=== PATIENT | male | born 1955 | race Caucasian/White ===

== ENCOUNTER → 2018-07-15 09:04 | Outpatient (CLI) | payer OTHER, SELFPAY ==
--- NOTE | 2018-07-15 | DI.MRI.S_ITS ---
PROCEDURE: MR CERVICAL SPINE WO CON INDICATIONS: PAIN IN LEFT SHOULDER TECHNIQUE: Noncontrast sagittal T1 spin echo and T2 fast spin echo, sagittal STIR, foraminal oblique sagittal T2 fast spin echo, and axial gradient echo or T2 fast spin echo through the cervical spine. COMPARISON: [facility], , C-SPINE WITHOUT CONTRAST, 09/20/2017, 8:29. FINDINGS: Image quality: Excellent. Alignment and Curvature: There is mild straightening of normal cervical lordosis. Grade 1 retrolisthesis of C3 on C4 is again seen, not significantly changed from previous study. Bone Marrow: Marrow demonstrates normal overall signal. Vertebral body heights are well-preserved. No acute compression fracture. Spinal Cord: Visualized spinal cord has normal size and signal. No cerebellar tonsillar herniation. Paraspinous Soft Tissues: No paravertebral masses. Prevertebral soft tissues are normal in thickness. 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 Similar finding is also noted on the left side at C7-T1 level. C2-C3: Bilateral uncinate hypertrophic changes are again seen more prominent on the left side with mild to moderate left-sided neuroforaminal narrowing unchanged from previous study. No significant canal stenosis. C3-C4: Diffuse disc bulge and bilateral uncinate hypertrophic changes are seen with superimposed central disc herniation causing moderate central canal stenosis and bilateral neuroforaminal narrowing unchanged or slightly progressed since previous study. C4-C5: Broad-based disc bulge and bilateral uncinate hypertrophic changes are again seen causing moderate central canal stenosis and left worse than right bilateral neuroforaminal narrowing, unchanged from previous study. C5-C6: Broad-based disc approach and bilateral uncinate hypertrophic changes are again seen with mild central canal stenosis and bilateral neural foramina narrowing unchanged from prior study. C6-C7: Broad-based disc bulge and bilateral uncinate hypertrophic changes are seen with mild central canal stenosis and mild bilateral neuroforaminal narrowing, not significantly changed from previous study. C7-T1: Normal appearance. IMPRESSION: 1. No significant interval changes from previous study. Multilevel degenerative disc bulge and bilateral facet hypertrophic changes causing mild to moderate central canal stenosis and bilateral neuroforaminal narrowing as described above, not significantly from previous study. 2. No marrow edema. No abnormal cervical spinal cord signal. Stable minimal retrolisthesis of C3 on C4. Dictated by: Laci Zuñiga M.D. on 07/15/2018 at 11:52 Approved by: Laci Zuñiga M.D. on 07/15/2018 at 11:58
--- NOTE | 2018-07-15 | DI.MRI.S_ITS ---
PROCEDURE: MR SHOULDER LT W CON INDICATIONS: PAIN IN LEFT SHOULDER TECHNIQUE: After the administration of 12 mL of dilute intra-articular Gadolinium contrast, oblique coronal T1 and T2 spin echo with fat saturation, oblique sagittal T1 spin echo with and without fat saturation, oblique sagittal T2 fast spin echo with fat saturation, axial T1 spin echo with fat saturation through the shoulder. COMPARISON: [facility], RF, FL SHOULDER INJECTION MR/CT LT, 07/15/2018, 9:34. [facility], MR, SHOULDER WITH CONTRAST, 09/26/2016, 9:52. FINDINGS: Image quality: Excellent. Rotator cuff: Tendinosis and moderately articular surface partial-thickness tear involving distal supraspinatus at its insertion on greater tuberosity of humeral head is seen extending to the musculotendinous junction. Tendinosis and moderate grade articular surface partial-thickness tear involving distal infraspinatus extending to musculotendinous junction is also noted. There is distal subscapularis tendinosis. No gross full-thickness rotator cuff tendon rupture. Mild supraspinatus muscle atrophy is seen on sagittal images. Bones and bursae: No bone marrow contusions or fractures. Mild to moderate osteoarthritic changes in the acromioclavicular joint is seen. The acromion demonstrates conventional anatomy, without an os acromiale. Capsule and soft tissues: There is subtle signal abnormality and contrast extension in superior labrum at 12:00 position, suggestive of focal labral tear. The long head of the biceps tendon demonstrates normal location and morphology. The rotator interval appears normal, without fibrosis. The coracohumeral ligament is of normal thickness. No intra-articular bodies. IMPRESSION: 1. Tendinosis and moderately articular surface partial-thickness tear involving distal supraspinatus and infraspinatus extending to musculotendinous junctions. Distal subscapularis tendinosis. No full-thickness rotator cuff tendon tear. 2. Suggestion of focal superior labral tear at 12:00 position. 3. Mild to moderate acromioclavicular joint osteophyte is. Dictated by: Laci Zuñiga M.D. on 07/15/2018 at 11:30 Approved by: Laci Zuñiga M.D. on 07/15/2018 at 11:52
--- NOTE | 2018-07-15 | DI.RAD.S_ITS ---
PROCEDURE: FL SHOULDER INJECTION MR/CT LT INDICATIONS: PAIN IN LEFT SHOULDER TECHNIQUE: The indications, alternatives, benefits, risks, and complications of the procedure were explained to the patient. Written informed consent was obtained and placed in the chart. The shoulder was examined fluoroscopically and a site for needle placement chosen for entry into the glenohumeral joint from an anterior approach. The skin was prepped and draped in a sterile fashion, and 1% lidocaine infiltrated from skin down to joint capsule. A spinal needle was inserted into the glenohumeral joint, and a small amount of iodinated contrast media injected to confirm intra-articular placement of the needle tip. This was followed by approximately 12 mL dilute solution of a gadolinium containing MR contrast agent. The needle was removed and a dressing was applied. The patient was given postprocedural instructions and sent to the MR suite for MR imaging. FINDINGS: A single fluoroscopic spot image demonstrates intra-articular location of injected iodinated contrast. IMPRESSION: Successful fluoroscopically guided administration of dilute Gadolinium solution into the shoulder joint for MR arthrogram. Dictated by: Lito Kenny M.D. on 07/15/2018 at 12:33 Approved by: Lito Kenny M.D. on 07/15/2018 at 12:33
== END ==
PROVIDERS: PCP Family Medicine; Visit Provider Family Medicine
DX: M25.512 Pain in left shoulder (principal); M75.112 Incomplete rotator cuff tear or rupture of left shoulder, not specified as traumatic; M25.712 Osteophyte, left shoulder; M50.21 Other cervical disc displacement, high cervical region; M48.02 Spinal stenosis, cervical region
CPT/HCPCS: 23350; 72141; 73222; 77002

== ENCOUNTER → 2020-07-01 09:01 | Outpatient (CLI) | payer MEDICARE, OTHER, SELFPAY ==
--- NOTE | 2020-07-01 | DI.MRI.S_ITS ---
PROCEDURE: MR HIP LT WO/W CON INDICATIONS: Pain in left hip TECHNIQUE: Noncontrast coronal T1 spin echo and STIR through the bony pelvis. Coronal and axial T2 fast spin echo with fat saturation, axial T1 spin echo with fat saturation, sagittal T1 spin echo, and oblique axial T2 fast spin echo with fat saturation through the hip. Post-contrast axial, coronal, and sagittal spin echo with fat saturation through the hip. COMPARISON: None. FINDINGS: Image quality: Excellent. Bones and joints: Bone marrow of the pelvic ring and proximal femurs show normal signal throughout. No intraosseous lesions or fractures. No avascular necrosis of the femoral heads. Disc desiccation and degenerative endplate changes and facet hypertrophy are seen in the included lumbar spine. Tendons and ligaments: The gluteus medius and minimus tendons demonstrate mild tendinosis. The proximal iliotibial band appears intact. The iliopsoas tendon appears intact, without adjacent bursal fluid collectios. The origin of the hamstring tendon is intact at the ischial tuberosity. The direct and indirect heads of the rectus femoris muscle origin appear intact. Labrum and cartilage: Subchondral cystic changes are seen in the posterolateral acetabulum related to overlying cartilage loss. The acetabular labrum appears intact in the absence of intra-articular contrast. Cartilage surface of the femoral head appears of normal thickness. There is normal morphology of the femoral head and the acetabulum. Soft tissues: There is a small fat containing left inguinal hernia. Visualized muscles demonstrate normal bulk and internal signal. Quadratus femoris muscle demonstrates no internal edema to suggest ischiofemoral impingement. The proximal sciatic neurovascular bundle appears intact. The included portions of the pelvis demonstrate no acute abnormality. No suspicious enhancing soft tissue mass is identified. IMPRESSION: 1. Subchondral cystic changes in the posterolateral acetabulum related to overlying cartilage loss. No discrete labral tear is seen. 2. Mild left distal gluteus medius and minimus tendinosis. 3. Small fat containing left inguinal hernia. 4. Degenerative changes are seen in the included lower lumbar spine. Dictated by: Michael López M.D. on 07/01/2020 at 9:41 Approved by: Michael López M.D. on 07/01/2020 at 9:52
== END ==
PROVIDERS: PCP Family Medicine; Referring Provider Family Medicine; Visit Provider Family Medicine
DX: M25.552 Pain in left hip (principal); M47.816 Spondylosis without myelopathy or radiculopathy, lumbar region; K40.40 Unilateral inguinal hernia, with gangrene, not specified as recurrent
CPT/HCPCS: 73723

== ENCOUNTER → 2021-04-26 09:07 | Outpatient (CLI) | payer MEDICARE, OTHER, SELFPAY ==
--- NOTE | 2021-04-26 | DI.MRI.S_ITS ---
PROCEDURE: MR WRIST RT WO CON INDICATIONS: Primary osteoarthritis, right wrist TECHNIQUE: Noncontrast coronal proton density fast spin echo and T2 fast spin echo with fat saturation; coronal 3-D gradient echo, axial T1 spin echo and T2 fast spin echo with fat saturation, sagittal T1 spin echo through the wrist. COMPARISON: None. FINDINGS: Image quality: Degraded by motion artifact.. Bones and cartilage: The carpal bones are normally aligned. No bone marrow contusions or fractures. No evidence for avascular necrosis. Scattered degenerative subchondral sclerosis and spurring. There also scattered areas of degenerative cystic change. Carpal ligaments: The scapholunate and lunotriquetral ligaments appear intact. In the absence of intra-articular contrast, the extrinsic carpal ligaments are not well identified. On sagittal images, the pisohamate ligament appears intact. Triangular fibrocartilage complex: The triangular fibrocartilage appears intact. The adjacent meniscal homolog appears normal in the absence of intra-articular contrast. The extensor carpi ulnaris tendon is slightly thickened and demonstrates mild intrasubstance signal change raising possibility of low-grade tendinopathy Tendons and soft tissues: The carpal tunnel structures appear normal, including the median nerve. The ulnar nerve appears normal within Guyon's canal. There is minimal fluid surrounding the extensor carpi radialis longus in keeping with mild tenosynovitis. No soft tissue ganglion cysts. IMPRESSION: Diffuse carpal osteoarthritis. Mild extensor carpi ulnaris tendinopathy. Mild extensor carpi radialis longus tenosynovitis. Dictated by: Lito Kenny M.D. on 04/26/2021 at 11:31 Approved by: Lito Kenny M.D. on 04/26/2021 at 11:52
== END ==
PROVIDERS: PCP Family Medicine; Referring Provider Orthopaedic Surgery; Visit Provider Orthopaedic Surgery
DX: M19.031 Primary osteoarthritis, right wrist (principal); M18.11 Unilateral primary osteoarthritis of first carpometacarpal joint, right hand; M65.831 Other synovitis and tenosynovitis, right forearm
CPT/HCPCS: 73221

== ENCOUNTER → 2021-07-12 16:26 | Outpatient (CLI) | payer MEDICARE, OTHER, SELFPAY ==
--- NOTE | 2021-07-12 | DI.MRI.S_ITS ---
PROCEDURE: MR LUMBAR SPINE WO CON INDICATIONS: Spondylosis without myelopathy or radiculopathy, TECHNIQUE: Noncontrast sagittal T1 spin echo and T2 fast echo, coronal T2, sagittal STIR, axial T1 and T2 fast spin echo through the lumbar spine. COMPARISON: [facility], CR, XR LUMBAR SPINE WITH OBLIQUES PLUS FLEXION EXTENSION, 07/10/2021, 9:51. [facility], MR, MR LUMBAR SPINE WITHOUT CONTRAST, 02/27/2013, 14:54. FINDINGS: Image quality: Excellent. Alignment and Curvature: No plain films are available for comparison, for numbering purposes. Thus, for the purposes of this examination, 5 lumbar type vertebral bodies will be presumed, as denoted on the montage panel. This should be confirmed and correlated with plain films, prior to any lumbar spinal intervention. There is mild grade 1 anterolisthesis of L5 on S1. Bone Marrow: Marrow is of normal overall signal. No acute vertebral body compression fractures. Bilateral L5-S1 pars interarticularis defects are present, as before. There is mild reactive signal throughout the endplates of the lumbar spine. Spinal Cord: Conus medullaris terminates at the mid L1 level. Visualized cord demonstrates normal signal and size. Paraspinous Soft Tissues: No paravertebral masses. T12-L1: Normal appearance. L1-L2: Normal appearance. L2-L3: Mild disc desiccation and diffuse disc bulge. Mild facet and ligamentum flavum hypertrophy. Mild canal stenosis. Mild bilateral foraminal stenosis. L3-L4: Moderate disc height loss and desiccation. Mild diffuse disc bulge. Mild facet and ligamentum flavum hypertrophy. Mild canal stenosis. Moderate bilateral foraminal stenosis. No significant change. L4-L5: Mild disc desiccation and diffuse disc bulge. Mild bilateral facet hypertrophy. Mild canal stenosis. Mild bilateral foraminal stenosis. No significant change. L5-S1: Severe disc height loss and desiccation. Mild diffuse disc bulge. Mild bilateral facet hypertrophy. No significant canal stenosis. Moderate to severe bilateral foraminal stenosis. Bilateral L5 nerve root compression. No significant change. IMPRESSION: 1. Multilevel degenerative disc and facet disease, as well as ligamentum flavum hypertrophy and epidural lipomatosis. 2. Grade 1 isthmic spondylolisthesis at L5-S1. 3. Mild multilevel canal stenosis. 4. Multilevel foraminal stenoses, worst at L5-S1 where there is associated intraforaminal nerve root compression. Recommend correlation with clinical symptoms to ascertain relevance of this finding. Dictated by: Gavi Robles M.D. on 07/12/2021 at 16:28 Approved by: Gavi Robles M.D. on 07/12/2021 at 16:33
== END ==
PROVIDERS: PCP Family Medicine; Referring Provider Physical Medicine & Rehabilitation; Visit Provider Physical Medicine & Rehabilitation
DX: M47.816 Spondylosis without myelopathy or radiculopathy, lumbar region (principal); M47.817 Spondylosis without myelopathy or radiculopathy, lumbosacral region; M51.36 Other intervertebral disc degeneration, lumbar region; M51.37 Other intervertebral disc degeneration, lumbosacral region; M48.061 Spinal stenosis, lumbar region without neurogenic claudication; M48.07 Spinal stenosis, lumbosacral region
CPT/HCPCS: 72148

== ENCOUNTER → 2024-10-29 08:47 | Outpatient (CLI) | payer MEDICARE, OTHER, SELFPAY ==
--- NOTE | 2024-10-29 08:50 | DI.MRI.S_ITS ---
PROCEDURE: MR LUMBAR SPINE WO CON INDICATIONS: LUMBAR RADICULAR PAIN L5S1 DIST. TECHNIQUE: Noncontrast sagittal T1 spin echo and T2 fast echo, sagittal STIR, and T2 fast spin echo through the lumbar spine. In cases with scoliosis, additional coronal T2 fast spin echo may be performed. COMPARISON: [facility], , MR LUMBAR SPINE WO CON, 07/12/2021, 16:37. [facility], CR, XR LUMBAR SPINE 2 OR 3 VIEWS, 02/25/2024, 16:40. FINDINGS: Image quality: Excellent. Alignment and Curvature: There is mild grade 1 anterolisthesis seen at the L5-S1 level. There are associated pars defects. Bone Marrow: Marrow is of normal overall signal. Note is made of fatty metaplasia of the sacrum, however. No acute vertebral body compression fractures. Spinal Cord: Conus medullaris terminates at the T12-L1 level. Visualized cord demonstrates normal signal and size. Paraspinous Soft Tissues: No paravertebral masses. Water signal left renal cysts are partially seen. T12-L1: Normal appearance. L1-L2: No significant abnormality is seen. L2-L3: The disc height is well-preserved. Loss of disc signal is seen at this level. Moderate generalized disc bulge is seen. There is a superimposed central disc osteophyte protrusion. Mild facet joint hypertrophy is seen. Moderate central canal narrowing is seen. These imaging findings have progressed compared to the prior study. L3-L4: Mild loss of disc height is seen. Loss of disc signal is seen. Moderate generalized disc bulge is seen. There is a superimposed central disc protrusion. Moderate facet joint hypertrophy is seen. Moderate bilateral neural foraminal narrowing can be seen, right worse than left. Mild central canal narrowing is seen. When comparison is made with the prior images, these findings are similar. L4-L5: The disc height and disk signal are relatively well-preserved. Mild to moderate disc bulge is seen, with a focal right lateral recess/right subarticular disc extrusion, as on series 6, image 24 and on series 7, image 15. There is a focal annular fissure seen posteriorly. Mild to moderate facet hypertrophy is seen. There is at least moderate bilateral neural foraminal narrowing. The right-sided focal disc extrusion is new compared to the prior examination. L5-S1: Moderate loss of disc height is seen. Loss of disc signal is seen. Moderate generalized disc bulge is seen. Moderate facet joint hypertrophy is seen. There is at least moderate bilateral neural foraminal narrowing seen. There is a degree of compression seen upon the exiting nerve roots. Minimal central canal narrowing is seen. When comparison is made with the prior images, these findings are similar. IMPRESSION: Multiple levels of lumbar spine degenerative change can be seen, which are worst at the L5-S1 level. There is a new focal central/right disc extrusion seen at L4-L5. Dictated by: Emre Kimble M.D. on 10/29/2024 at 12:28 Approved by: Emre Kimble M.D. on 10/29/2024 at 12:34
== END ==
PROVIDERS: PCP Family Medicine; Referring Provider Family Medicine; Visit Provider Family Medicine
DX: M51.16 Intervertebral disc disorders with radiculopathy, lumbar region (principal); M47.26 Other spondylosis with radiculopathy, lumbar region; M47.27 Other spondylosis with radiculopathy, lumbosacral region
CPT/HCPCS: 72148

== ENCOUNTER → 2025-02-10 12:40 | Outpatient (CLI) | payer MEDICARE, OTHER, SELFPAY ==
--- NOTE | 2025-02-10 12:42 | DI.MRI.S_ITS ---
PROCEDURE: MR HEAD/BRAIN WO CON INDICATIONS: SHORT TERM MEMORY LOSS TECHNIQUE: Non-contrast axial T1 spin echo, axial T2 fast spin echo, sagittal and axial FLAIR, coronal T2 fast spin echo, axial gradient echo, axial diffusion and ADC through the brain. COMPARISON: None. FINDINGS: Image quality: Excellent. CSF spaces: Ventricles appear symmetric in size and shape. Basal cisterns are patent. No extra-axial fluid collections. Brain: No intracranial bleeds or mass effects. Moderate generalized brain parenchymal volume loss can be seen. No abnormal regional volume loss is seen. Mild chronic small vessel ischemic change can be seen. Brainstem appears normal. Diffusion- weighted images show no acute infarct. No chronic ischemic insults. Normal intravascular flow voids are present. Skull and face: Calvarial bone marrow is normal in signal. Orbits are normal. Sinuses: Sinuses and mastoids are clear. IMPRESSION: Brain MRI within normal limits for age, with note made of moderate generalized brain parenchymal volume loss. Dictated by: Emre Kimble M.D. on 02/10/2025 at 13:55 Approved by: Emre Kimble M.D. on 02/10/2025 at 13:57
== END ==
PROVIDERS: PCP Family Medicine; Referring Provider Family Medicine; Visit Provider Family Medicine
DX: R41.3 Other amnesia (principal)
CPT/HCPCS: 70551

== ENCOUNTER → 2025-02-26 10:35 | Outpatient (CLI) | payer MEDICARE, OTHER, SELFPAY ==
--- NOTE | 2025-02-26 10:36 | DI.RAD.S_ITS ---
PROCEDURE: FL ARTHROGRAM SHOULDER LT INDICATIONS: PAIN/RADICULOPATHY COMPARISON: None. TECHNIQUE: The indications, alternatives, benefits, risks, and complications of the procedure were explained to the patient. Written informed consent was obtained and placed in the chart. The shoulder was examined fluoroscopically and a site for needle placement chosen for entry into the glenohumeral joint from an anterior approach. The skin was prepped and draped in a sterile fashion, and 1% lidocaine infiltrated from skin down to joint capsule. A spinal needle was inserted into the glenohumeral joint, and a small amount of iodinated contrast media injected to confirm intra-articular placement of the needle tip. This was followed by approximately 12 mL dilute solution of a gadolinium containing MR contrast agent. The needle was removed and a dressing was applied. The patient was given postprocedural instructions and sent to the MR suite for MR imaging. FINDINGS: A single fluoroscopic spot image demonstrates intra-articular location of injected iodinated contrast. IMPRESSION: Successful fluoroscopically guided administration of dilute Gadolinium solution into the shoulder joint for MR arthrogram. Dictated by: Bienvenido Jacinto M.D. on 02/26/2025 at 12:46 Approved by: Bienvenido Jacinto M.D. on 02/26/2025 at 12:46
--- NOTE | 2025-02-26 10:37 | DI.MRI.S_ITS ---
PROCEDURE: MR CERVICAL SPINE WO CON INDICATIONS: PAIN/RADICULOPATHY TECHNIQUE: Noncontrast sagittal T1 spin echo and T2 fast spin echo, sagittal STIR, foraminal oblique sagittal T2 fast spin echo, and axial gradient echo or T2 fast spin echo through the cervical spine. COMPARISON: [facility], MR, C-SPINE WITHOUT CONTRAST, 01/06/2016, 8:53. [facility], MR, C-SPINE WITHOUT CONTRAST, 09/20/2017, 8:29. [facility], MR, MR CERVICAL SPINE WO CON, 07/15/2018, 10:32. FINDINGS: Image quality: Diagnostic, with note made of motion artifact. Alignment and Curvature: There is overall straightening of the normal cervical lordosis. No focal AP alignment abnormality is seen. Bone Marrow: Marrow demonstrates normal overall signal. Spinal Cord: Visualized spinal cord has normal size and signal. No cerebellar tonsillar herniation. Paraspinous Soft Tissues: No paravertebral masses. Prevertebral soft tissues are normal in thickness. C2-C3: Moderate loss of disc height is seen. Loss of disc signal is seen. Moderate generalized disc osteophyte complex is seen. There is at least moderate facet hypertrophy. There is [id number] left-sided and no significant right- sided neural foraminal narrowing. No significant central canal narrowing is seen. No significant change from the prior. C3-C4: At least moderate loss of disc height and disc signal can be seen. Moderate disc osteophyte complex is seen, which is eccentric to the right. Uncovertebral joint hypertrophy is seen at this level. There is a superimposed central disc osteophyte protrusion. At least moderate facet hypertrophy is seen. There is moderate to severe bilateral neural foraminal narrowing seen. Moderate central canal narrowing is seen. There is associated mass effect upon the ventral spinal cord. No significant change from the prior. C4-C5: The disc height is well-preserved. Loss of disc signal is seen at this level. Moderate generalized disc osteophyte complex is seen. There is moderate right- sided and at least moderate left-sided facet hypertrophy. There is moderate to severe left-sided and moderate right-sided neural foraminal narrowing. Mild to moderate central canal narrowing is seen at this level. When comparison is made with the prior images, these findings are similar. C5-C6: The disc height is well-preserved. Loss of disc signal is seen at this level. A mild to moderate degree of generalized disc osteophyte complex is seen. At least moderate facet hypertrophy is seen at this level. There is at least moderate bilateral neural foraminal narrowing. [id number] central canal narrowing is seen. There is associated mass effect upon the ventral spinal cord. There is mild progression of degenerative change compared to the prior. C6-C7: Moderate loss of disc height is seen. Loss of disc signal is seen. Moderate generalized disc osteophyte complex is seen. There is a superimposed central disc osteophyte protrusion. At least moderate facet hypertrophy is seen. There is moderate to severe bilateral neural foraminal narrowing. Mild central canal narrowing is seen. These imaging findings have progressed compared to the prior study. C7-T1: The disc height and disk signal are relatively well-preserved. Mild to moderate disc osteophyte complex is seen, which is eccentric to the left. No significant neural foraminal or central canal narrowing can be seen. When comparison is made with the prior images, these findings are similar. IMPRESSION: Multiple levels of cervical spine degenerative change can be seen, which are mildly progressed at C5-C6 and C6-C7 compared to 2018. Dictated by: Emre Kimble M.D. on 02/26/2025 at 17:47 Approved by: Emre Kimble M.D. on 02/26/2025 at 17:53
--- NOTE | 2025-02-26 10:37 | DI.MRI.S_ITS ---
PROCEDURE: MR SHOULDER LT W CON INDICATIONS: PAIN/RADICULOPATHY TECHNIQUE: After the administration of 12 mL of dilute intra-articular Gadolinium contrast, oblique coronal T1 and T2 spin echo with fat saturation, oblique sagittal T1 spin echo with and without fat saturation, oblique sagittal T2 fast spin echo with fat saturation, axial T1 spin echo with fat saturation through the shoulder. COMPARISON: [facility], MR, MR SHOULDER LT W CON, 07/15/2018, 10:06. [facility], MR, SHOULDER WITH CONTRAST, 09/26/2016, 9:52. FINDINGS: Image quality: Excellent. Rotator cuff: In the supraspinatus, there is high-grade articular sided tear at the critical zone of the posterior fiber (07:12), superimposed on focal full- thickness tear (07:13, and 10:7). There is additional focal full-thickness tear at the myotendinous junction of the posterior supraspinatus (07:13). 2.6 cm demyelinating cyst tracking along the myotendinous junction of the infraspinatus. The teres minor is unremarkable. The subscapularis is unremarkable. No muscle edema or fatty atrophy. Bones and bursae: Status post subacromial decompression. Type 2 acromion. No os acromiale. No subacromial/subdeltoid bursitis. Small amount of contrast extravasating into the subacromial/subdeltoid bursa. Status post prior rotator cuff tendon repair with susceptibility artifact about the greater tuberosity. Mild subchondral cystic changes about the greater tuberosity, reactive. No acute fracture. No focal chondral defect of the glenohumeral articulation. Capsule and soft tissues: Superior labral tear. No paralabral cyst. The extra-articular, and the intra-articular biceps tendon are unremarkable. No intra-articular body. IMPRESSION: 1. Two area of focal full-thickness tear at the posterior supraspinatus, grossly unchanged from prior exam. 2. 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 3. Status post subacromial decompression and prior rotator cuff tendon repair. 4. Superior labral tear. Dictated by: Amanda Aviles M.D. on 02/26/2025 at 17:27 Approved by: Amanda Aviles M.D. on 02/26/2025 at 17:40
[2025-02-26] MEDS: SODIUM CHLORIDE 0.9 % 20 ML VIAL IV (13:23)
[2025-02-26] MEDS: LIDOCAINE 1% 20 ML INJ (13:23)
== END ==
LOC: RAD 10:36
PROVIDERS: PCP Family Medicine; Referring Provider Family Medicine; Visit Provider Family Medicine
DX: M47.892 Other spondylosis, cervical region (principal); M75.42 Impingement syndrome of left shoulder; M25.512 Pain in left shoulder; M75.122 Complete rotator cuff tear or rupture of left shoulder, not specified as traumatic; M25.812 Other specified joint disorders, left shoulder; S43.402A Unspecified sprain of left shoulder joint, initial encounter; Z98.890 Other specified postprocedural states; M25.78 Osteophyte, vertebrae; M47.812 Spondylosis without myelopathy or radiculopathy, cervical region; M48.02 Spinal stenosis, cervical region
CPT/HCPCS: 23350; 72141; 73040; 73222; A9579; Q9967